=== PATIENT | male | born 2000 | race Caucasian/White ===

== ENCOUNTER 2022-01-04 15:58 | Emergency (ER) | payer MEDICAID ==
[~2022-01-04] VITALS: Ht 182.9 cm; Wt 97.7 kg
[2022-01-04 16:04] VITALS: BP 119/68
[2022-01-04] MEDS ORDERED: mag hydrox/Alum hydrox/simeth 30ml oral suspension PO ONE (16:05)
[2022-01-04] MEDS ORDERED: sucralfate 1 gm tablet PO ONE (16:05)
[2022-01-04] MEDS ORDERED: LIDOcaine Viscous 15ml cup MM ONE (16:05)
[2022-01-04] MEDS ORDERED: PANT40SU2 PO (16:46)
== END 2022-01-04 17:01 | disposition home or self-care (01) ==
LOC: ER 15:59
DX: K29.00 Acute gastritis without bleeding (principal); R42 Dizziness and giddiness; R00.0 Tachycardia, unspecified; Z87.01 Personal history of pneumonia (recurrent); Z79.899 Other long term (current) drug therapy
CPT/HCPCS: 71045; 93005; 99283

== ENCOUNTER 2024-08-23 13:13 | Emergency (ER) | payer MEDICAID, OTHER ==
[~2024-08-23] VITALS: Ht 177.8 cm; Wt 109.1 kg
[~2024-08-23 13:13] MED LIST: PANT40SU2 PO
[2024-08-23 13:15] VITALS: BP 180/94; PULSE 79; RESP 16; TEMP 98.6; O2SAT 100
[2024-08-23] MEDS: ondansetron 4mg rapidly disintigrating tab PO ONE (14:44)
[2024-08-23] MEDS ORDERED: ONDA-243 PO (14:55)
== END 2024-08-23 15:04 | disposition home or self-care (01) ==
LOC: ER 13:13
DX: R11.10 Vomiting, unspecified (principal); F12.90 Cannabis use, unspecified, uncomplicated; Z88.2 Allergy status to sulfonamides
CPT/HCPCS: 99283